=== PATIENT | male | born 1955 | race Caucasian/White ===

== ENCOUNTER 2019-11-22 19:55 | Emergency (ER) | payer OTHER ==
[2019-11-22] MEDS ORDERED: EPINEPHrine 1 MG/ML SDV IM ONE (20:06)
[2019-11-22] MEDS ORDERED: methylPREDNISolone Sod Succ 125 MG in Dextrose 5% in Water 100 ML IV ONE ×2 (20:07)
[2019-11-22] MEDS ORDERED: Famotidine 20 MG/2 ML SDV IVPUSH ONE (20:08)
--- NOTE | 2019-11-22 20:14 | EDM.PDOC ---
<SharonCody - Last Filed: 11/22/19 21:19> ED HPI GENERAL MEDICAL PROBLEM - General Chief Complaint: Allergic Reaction Stated Complaint: BEE STING Time Seen by Provider: 11/22/19 20:05 Source of Information: Reports: Patient History Limitations: Reports: No Limitations - History of Present Illness INITIAL COMMENTS - FREE TEXT/NARRATIVE: 64 y/o male with a history of bee sting allergies was stung on the right hand one hour ago. He developed generalized itching, lip swelling and chest tightness. He took Benadryl 50 mg PO prior to arrival. He has a history of asthma and has an inhaler. He doesn't smoke and denies alcohol use. He denies chest pain, chills or fever. - Related Data Allergies Allergy/AdvReac Type Severity Reaction Status Date / Time No Known Allergies Allergy Verified 11/22/19 20:11 Home Meds: Home Meds Albuterol Sulfate [Proair Hfa] 1 dose INH ASDIRECTED 11/22/19 [History] Fluticasone Propionate [Flonase Allergy Relief] 1 spray JAMIE ASDIRECTED 11/22/19 [History] Fluticasone Propionate [Flovent HFA] 1 dose INH ASDIRECTED 11/22/19 [History] Pravastatin [Pravachol] 20 mg PO DAILY 11/22/19 [History] lisinopriL [Lisinopril] 0 mg PO DAILY 11/22/19 [History] ED ROS ALLERGIC REACTION - Review of Systems Review Of Systems: See Below Constitutional: Denies: Fever, Chills HEENT: Reports: Other (lip swelling) Respiratory: Reports: Shortness of Breath Cardiovascular: Denies: Chest Pain Endocrine: Denies: Polydypsia, Polyuria GI/Abdominal: Denies: Nausea, Vomiting : Reports: No Symptoms Musculoskeletal: Reports: No Symptoms Skin: Reports: Urticaria Neurological: Reports: No Symptoms Psychiatric: Reports: No Symptoms Immunologic: Reports: Anaphylaxis, Other (Bee sting allergies) ED EXAM GENERAL NO PERIP PULSE - Physical Exam Exam: See Below Exam Limited By: No Limitations General Appearance: Alert, WD/WN, No Apparent Distress, Moderate Distress Throat/Mouth: Other (lip swelling) Neck: Normal Inspection, Supple, Non-Tender. No: Carotid Bruit Respiratory/Chest: Wheezing Cardiovascular: Regular Rate, Rhythm Extremities: Other (edema right hand) Neurological: Alert, Oriented, CN II-XII Intact, Normal Cognition Course - Vital Signs Text/Narrative:: This patient with a history of a bee string allergy and asthma presents one hour after a bee sting tonight. He had magaly-facial angio-edema with wheezing. His vital signs were normal. He was treated with epinephrine 0.3 mg IM, solumedrol 125 mg IV and Pepcid IV. He was given a liter of fluids IV. He responded well and signs and symptoms resolved. He was observed in the ED for 4 hours and had no rebound symptoms. He was given an Rx of Epi-Pen Duo thania and told to see an post anesthesia room nurse near his home in the near future. He agreed with this plan. Departure - Departure Disposition: Home, Self-Care 01 Clinical Impression: Allergic reaction to bee sting - Discharge Information Instructions: Bee, Wasp, or Hornet Sting, Adult Referrals: PCP,None [Primary Care Provider] - Forms: ED Department Discharge Care Plan Goals: Continue with Benadryl 50 mg every 4 hours if needed for itching or rash. Return anytime if worsening such as difficulty breathing, and fill your prescription for EpiPen tomorrow and carry with you for future use if needed. <Gavin Cerda - Last Filed: 11/23/19 03:19> Course - Vital Signs Last Recorded V/S: Last Vital Signs Temp 99.1 F 11/22/19 20:06 Pulse 77 11/22/19 21:35 Resp 14 11/22/19 21:35 BP 126/68 11/22/19 21:35 Pulse Ox 94 L 11/22/19 21:35 - Orders/Labs/Meds Meds: Medications Discontinued Medications Generic Name Dose Route Start Last Admin Trade Name Freq PRN Reason Stop Dose Admin Epinephrine HCl 0.3 mg 11/22/19 20:06 11/22/19 20:00 Adrenalin IM 11/22/19 20:07 0.3 mg ONETIME ONE Administration Famotidine 20 mg 11/22/19 20:08 11/22/19 20:30 Pepcid IVPUSH 11/22/19 20:09 20 mg ONETIME ONE Administration Methylprednisolone Sodium 100 mls @ 100 mls/hr 11/22/19 20:07 Succinate 125 mg/ Dextrose/ IV 11/22/19 21:06 Water ONETIME ONE Sodium Chloride 1,000 mls @ 1,000 mls/hr 11/22/19 20:15 11/22/19 20:18 Normal Saline IV 1,000 mls/hr ASDIRECTED RADHA Administration Methylprednisolone Sodium Succinate 125 mg 11/22/19 20:20 11/22/19 20:04 Solu-Medrol IVPUSH 11/22/19 20:21 125 mg ONETIME ONE Administration Departure - Departure Time of Disposition: 22:46 Sepsis Event Note (ED) - Focused Exam Vital Signs: Vital Signs Temp Pulse Resp BP Pulse Ox 11/22/19 21:35 77 14 126/68 94 L 11/22/19 21:05 81 14 126/61 96 11/22/19 20:35 81 15 126/68 96 11/22/19 20:06 99.1 F 88 16 122/69 95
[2019-11-22] MEDS ORDERED: Sodium Chloride 0.9% 1,000 ML IV SCH (20:15)
[2019-11-22] MEDS ORDERED: methylPREDNISolone Sodium Succinate 125 MG/2 ML SDV IVPUSH ONE (20:20)
== END 2019-11-22 22:46 | disposition home or self-care (01) ==
LOC: JP.ED 19:55
DX: T63.441A Toxic effect of venom of bees, accidental (unintentional), initial encounter (principal); J45.909 Unspecified asthma, uncomplicated; Z79.899 Other long term (current) drug therapy
CPT/HCPCS: 96372; 96374; 96375; 99284; J0171; J2930; J3490; J7030

== ENCOUNTER 2020-03-18 21:31 | Emergency (ER) | payer OTHER ==
[2020-03-18] MEDS ORDERED: Morphine 4 MG/ML Syringe IVPUSH PRN (21:54)
[2020-03-18] MEDS ORDERED: Sodium Chloride 0.9% 10 ML Syringe FLUSH PRN (21:54)
[2020-03-18] MEDS ORDERED: Aspirin 81 MG Tab.Chew PO ONE (21:54)
--- NOTE | 2020-03-18 21:56 | EDM.PDOC ---
ED HPI GENERAL MEDICAL PROBLEM - General Chief Complaint: Chest Pain Stated Complaint: CHEST PAIN Time Seen by Provider: 03/18/20 21:54 Source of Information: Reports: Patient, Family, RN Notes Reviewed History Limitations: Reports: No Limitations - History of Present Illness INITIAL COMMENTS - FREE TEXT/NARRATIVE: 64-year-old gentleman presents emergency department a complaint of chest pain, he states the pain came on after he finished shoveling snow rated it may be 7 out of 10 very intense no nausea no vomiting no diaphoresis no shortness of breath, he did stop pain came down slightly to maybe 5 out of 10 however the pain has been constant center of his chest since 730 so about 2 and half hours. He took 2 baby aspirin at home he does have a family history of father m yocardial infarction in his 60s mother also history of heart failure in her 80s no history of tobacco use does have dyslipidemia Mid-Sternal Chest Pain Score (Numeric/FACES): 7 - Related Data Allergies Allergy/AdvReac Type Severity Reaction Status Date / Time No Known Allergies Allergy Verified 03/18/20 21:50 Home Meds: Home Meds Albuterol Sulfate [Proair Hfa] 1 dose INH ASDIRECTED 11/22/19 [History] Fluticasone Propionate [Flonase Allergy Relief] 1 spray JAMIE ASDIRECTED 11/22/19 [History] Fluticasone Propionate [Flovent HFA] 1 dose INH ASDIRECTED 11/22/19 [History] Pravastatin [Pravachol] 20 mg PO DAILY 11/22/19 [History] lisinopriL [Lisinopril] 0 mg PO DAILY 11/22/19 [History] Past Medical History Cardiovascular History: Reports: High Cholesterol, Hypertension Respiratory History: Reports: Asthma Dermatologic History: Reports: Other (See Below) Other Dermatologic History: roseaca - Past Surgical History GI Surgical History: Reports: Other (See Below) Other GI Surgeries/Procedures: splenectomy Musculoskeletal Surgical History: Reports: Shoulder Surgery Social & Family History - Caffeine Use Caffeine Use: Reports: Coffee ED ROS GENERAL - Review of Systems Review Of Systems: See Below Constitutional: Reports: No Symptoms HEENT: Reports: No Symptoms Respiratory: Reports: No Symptoms Cardiovascular: Reports: Chest Pain GI/Abdominal: Reports: No Symptoms ED EXAM, GENERAL - Physical Exam Exam: See Below Exam Limited By: No Limitations General Appearance: Alert, WD/WN, No Apparent Distress Respiratory/Chest: No Respiratory Distress, Lungs Clear, Normal Breath Sounds, No Accessory Muscle Use, Chest Non-Tender Cardiovascular: Regular Rate, Rhythm, No Murmur GI/Abdominal: Soft, Non-Tender Back Exam: Normal Inspection, Full Range of Motion. No: CVA Tenderness (R), CVA Tenderness (L) Extremities: Normal Inspection, No Pedal Edema Course - Vital Signs Last Recorded V/S: Last Vital Signs Temp 96.5 F L 03/18/20 22:13 Pulse 70 03/18/20 22:13 Resp 21 H 03/18/20 22:13 BP 144/78 H 03/18/20 22:13 Pulse Ox 95 03/18/20 22:13 - Orders/Labs/Meds Orders: Active Orders 24 hr Category Date Time Status Cardiac Monitoring [RC] .As Directed Care 03/18/20 21:54 Active Cardiac Monitoring [RC] STAT Care 03/18/20 22:36 Active Communication Order [RC] Per Unit Routine Care 03/18/20 22:36 Active Communication Order [RC] Per Unit Routine Care 03/18/20 22:36 Active EKG Documentation Completion [RC] ASDIRECTED Care 03/18/20 21:55 Active Oxygen Therapy [RC] ASDIRECTED Care 03/18/20 22:36 Active Peripheral IV Care [RC] . DIRECTED Care 03/18/20 21:55 Active Chest 1V Frontal [CR] Stat Exams 03/18/20 21:54 Ordered CORONAVIRUS COVID-19, MARIA LUZ Stat Lab 03/18/20 22:44 Ordered Heparin Sodium/D5W [Heparin 25,000 Units in D5W 500 ML] Med 03/18/20 22:45 Active 25,000 units in 500 ml IV TITRATE Morphine Med 03/18/20 21:54 Active 4 mg IVPUSH Q10M PRN Nitroglycerin [Nitrostat] Med 03/18/20 21:54 Active 0.4 mg SL Q5M PRN Sodium Chloride 0.9% [Saline Flush] Med 03/18/20 21:54 Active 10 ml FLUSH ASDIRECTED PRN Peripheral IV Insertion Adult [OM.PC] Stat Oth 03/18/20 21:54 Ordered Saline Lock Insert [OM.PC] Stat Oth 03/18/20 21:54 Ordered EKG 12 Lead [EK] Stat Ther 03/18/20 21:54 Ordered Medication Orders Heparin Sodium/Dextrose (Heparin 25,000 Units In D5w 500 Ml) 25,000 units in 500 mls @ 21.408 mls/hr IV TITRATE RADHA; Protocol Morphine Sulfate (Morphine) 4 mg IVPUSH Q10M PRN PRN Reason: Chest Pain Stop: 03/19/20 21:54 Nitroglycerin (Nitrostat) 0.4 mg SL Q5M PRN PRN Reason: Chest Pain Stop: 03/19/20 21:54 Last Admin: 03/18/20 22:12 Dose: 0.4 mg Documented by: Admin: 03/18/20 22:03 Dose: 0.4 mg Documented by: MEENA Sodium Chloride (Saline Flush) 10 ml FLUSH ASDIRECTED PRN PRN Reason: Keep Vein Open Last Admin: 03/18/20 22:09 Dose: 10 ml Documented by: MEENA Labs: Laboratory Tests 03/18/20 03/18/20 03/18/20 Range/Units 22:06 22:06 22:36 WBC 8.8 (4.5-11.0) K/uL RBC 4.60 (4.30-5.90) M/uL Hgb 14.3 (12.0-15.0) g/dL Hct 42.1 (40.0-54.0) % MCV 92 (80-98) fL MCH 31 (27-31) pg MCHC 34 (32-36) % Plt Count 337 (150-400) K/uL Neut % (Auto) 51 (36-66) % Lymph % (Auto) 27 (24-44) % [place] % (Auto) 14 H (2-6) % Eos % (Auto) 6 H (2-4) % Baso % (Auto) 2 H (0-1) % PT 10.7 (9.5-12.0) sec INR 0.98 (0.80-1.20) APTT 24.5 L (27.0-36.0) sec Sodium 137 L (140-148) mmol/L Potassium 3.6 (3.6-5.2) mmol/L Chloride 102 (100-108) mmol/L Carbon Dioxide 28 (21-32) mmol/L Anion Gap 10.6 (5.0-14.0) mmol/L BUN 11 (7-18) mg/dL Creatinine 1.0 (0.8-1.3) mg/dL Est Cr Clr Drug Dosing 75.61 mL/min Estimated GFR (MDRD) > 60 (>60) Glucose 163 H (74-106) mg/dL Calcium 8.9 (8.5-10.1) mg/dL Total Bilirubin 0.5 (0.2-1.0) mg/dL AST 19 (15-37) U/L ALT 27 (12-78) U/L Alkaline Phosphatase 76 (46-116) U/L Troponin I 0.106 H* (0.000-0.056) ng/mL Total Protein 7.3 (6.4-8.2) g/dL Albumin 3.7 (3.4-5.0) g/dL Globulin 3.6 H (2.3-3.5) g/dL Albumin/Globulin Ratio 1.0 L (1.2-2.2) Meds: Medications Generic Name Dose Route Start Last Admin Trade Name Frekaye PRN Reason Stop Dose Admin Heparin Sodium/Dextrose 25,000 units in 500 mls @ 21.408 mls/hr 03/18/20 22:45 Heparin 25,000 Units In D5w 500 Ml IV TITRATE RADHA Protocol 12 UNITS/KG/HR Morphine Sulfate 4 mg 03/18/20 21:54 Morphine IVPUSH 03/19/20 21:54 Q10M PRN Chest Pain Nitroglycerin 0.4 mg 03/18/20 21:54 03/18/20 22:12 Nitrostat SL 03/19/20 21:54 0.4 mg Q5M PRN Administration Chest Pain Sodium Chloride 10 ml 03/18/20 21:54 03/18/20 22:09 Saline Flush FLUSH 10 ml ASDIRECTED PRN Administration Keep Vein Open Discontinued Medications Generic Name Dose Route Start Last Admin Trade Name Freq PRN Reason Stop Dose Admin Aspirin 324 mg 03/18/20 21:54 03/18/20 22:15 Aspirin PO 03/18/20 21:55 Not Given ONETIME ONE Heparin Sodium (Porcine) 4,000 units 03/18/20 22:36 03/18/20 22:45 Heparin Sodium IVPUSH 03/18/20 22:37 4,000 units ONETIME ONE Administration Ticagrelor 180 mg 03/18/20 22:36 03/18/20 22:46 Brilinta PO 03/18/20 22:37 180 mg ONETIME ONE Administration Departure - Departure Time of Disposition: 22:57 Disposition: DC/Tfer to Acute Hospital 02 Reason for Transfer *Q: Primary PCI Indicated Condition: Fair Clinical Impression: Non-STEMI (non-ST elevated myocardial infarction) Referrals: PCP,None [Primary Care Provider] - Forms: ED Department Discharge Sepsis Event Note (ED) - Evaluation Sepsis Screening Result: No Definite Risk - Focused Exam Vital Signs: Vital Signs Temp Pulse Resp BP BP Pulse Ox 03/18/20 22:13 96.5 F L 70 21 H 144/78 H 95 03/18/20 22:12 144/78 H 03/18/20 22:03 172/94 H 03/18/20 21:45 96.5 F L 68 22 H 172/94 H 96 - My Orders Last 24 Hours: My Active Orders 03/18/20 21:54 Cardiac Monitoring [RC] .As Directed Chest 1V Frontal [CR] Stat Morphine 4 mg IVPUSH Q10M PRN Nitroglycerin [Nitrostat] 0.4 mg SL Q5M PRN Sodium Chloride 0.9% [Saline Flush] 10 ml FLUSH ASDIRECTED PRN Peripheral IV Insertion Adult [OM.PC] Stat Saline Lock Insert [OM.PC] Stat EKG 12 Lead [EK] Stat 03/18/20 21:55 EKG Documentation Completion [RC] ASDIRECTED Peripheral IV Care [RC] . DIRECTED 03/18/20 22:36 Cardiac Monitoring [RC] STAT Communication Order [RC] Per Unit Routine Communication Order [RC] Per Unit Routine Oxygen Therapy [RC] ASDIRECTED 03/18/20 22:44 CORONAVIRUS COVID-19, MARIA LUZ Stat 03/18/20 22:45 Heparin Sodium/D5W [Heparin 25,000 Units in D5W 500 ML] 25,000 units in 500 ml IV TITRATE - Assessment/Plan Last 24 Hours: My Active Orders 03/18/20 21:54 Cardiac Monitoring [RC] .As Directed Chest 1V Frontal [CR] Stat Morphine 4 mg IVPUSH Q10M PRN Nitroglycerin [Nitrostat] 0.4 mg SL Q5M PRN Sodium Chloride 0.9% [Saline Flush] 10 ml FLUSH ASDIRECTED PRN Peripheral IV Insertion Adult [OM.PC] Stat Saline Lock Insert [OM.PC] Stat EKG 12 Lead [EK] Stat 03/18/20 21:55 EKG Documentation Completion [RC] ASDIRECTED Peripheral IV Care [RC] . DIRECTED 03/18/20 22:36 Cardiac Monitoring [RC] STAT Communication Order [RC] Per Unit Routine Communication Order [RC] Per Unit Routine Oxygen Therapy [RC] ASDIRECTED 03/18/20 22:44 CORONAVIRUS COVID-19, MARIA LUZ Stat 03/18/20 22:45 Heparin Sodium/D5W [Heparin 25,000 Units in D5W 500 ML] 25,000 units in 500 ml IV TITRATE Plan: Assessment Acuity = acute Site and laterality = non-ST elevation myocardial infarction Etiology = probable underlying coronary artery disease Manifestations = none Location of injury = Home Lab values = CBC unremarkable BMP unremarkable troponin elevated 0.106 EKG demonstrates sinus rhythm there is no ST elevation or depression Plan Thus far he has received 180 mg Brilinta 4000 unit bolus of heparin will be started on heparin drip in route I did call and discussed the case with Dr. Baker hospitalist on-call [facility] can accept the patient in transport he has received 2 nitros here is pain-free at this time he will be transported via EMS ground for further evaluation, rapid Covid test is pending This note was dictated using [employer] voice recognition software please call with any questions on syntax or grammar.
[2020-03-18] MEDS: Nitroglycerin 0.4 MG Tab.SL SL PRN ×2 (22:03→22:12)
[2020-03-18] MEDS ORDERED: Heparin Sodium 5,000 Units/ML Vial IVPUSH ONE (22:36)
[2020-03-18] MEDS ORDERED: Ticagrelor 90 MG Tab PO ONE (22:36)
[2020-03-18] MEDS ORDERED: Heparin Sodium/D5W 25,000 UNITS/500 ML BAG IV SCH (22:45)
--- NOTE | 2020-03-21 14:40 | CR ---
CHEST: Portable 03/18/2020 at 10:10 PM CLINICAL HISTORY:Chest pain COMPARISON:None FINDINGS: The heart size, pulmonary vascularity and hilar structures are normal. No infiltrate effusion or pneumothorax is seen. There is a ovoid nodular density in the right apex measuring approximately 3 cm in maximum dimension. This is most likely a prominent first costal sternal junction. Underlying mass is not excluded. IMPRESSION:Right apical nodular focus is multiple is likely superimposed first rib. PA and lateral chest with apical lordotic view is recommended No acute cardiopulmonary process.
== END 2020-03-18 23:30 ==
LOC: JP.ED 21:31
DX: I21.4 Non-ST elevation (NSTEMI) myocardial infarction (principal); E78.00 Pure hypercholesterolemia, unspecified; I10 Essential (primary) hypertension; J45.909 Unspecified asthma, uncomplicated; Z79.899 Other long term (current) drug therapy; Z20.828 Contact with and (suspected) exposure to other viral communicable diseases
CPT/HCPCS: 36415; 71045; 80053; 84484; 85025; 85610; 85730; 87635; 93005; 96374; 99285; A9270; J1644; U0002